=== PATIENT | male | born 1990 | race Asian ===

== ENCOUNTER 2018-07-05 18:17 | Emergency (ER) | payer SELFPAY ==
[~2018-07-05] VITALS: Ht 177.8 cm; Wt 107.0 kg
[2018-07-05] MEDS ORDERED: IBUPROFEN 600MG TABLET PO ONE (19:15)
[2018-07-05 19:56] VITALS: BP 160/99
== END 2018-07-05 19:55 | disposition home or self-care (01) ==
LOC: ER 18:17
DX: M79.672 Pain in left foot (principal); R07.89 Other chest pain; M54.5 Low back pain; V89.2XXA Person injured in unspecified motor-vehicle accident, traffic, initial encounter; Y93.89 Activity, other specified; Y92.89 Other specified places as the place of occurrence of the external cause; Y99.8 Other external cause status
CPT/HCPCS: 71045; 73630; 93005; 99283